=== PATIENT | male | born 1965 | race African-American/Black ===

== ENCOUNTER → 2016-10-17 | Outpatient (CLI) | payer OTHER | LOC: LAB 08:36 | DX: Z00.00 Encounter for general adult medical examination without abnormal findings (principal); Z13.220 Encounter for screening for lipoid disorders; R53.81 Other malaise; E29.1 Testicular hypofunction ==

== ENCOUNTER → 2017-10-20 | Outpatient (CLI) | payer SELFPAY ==
[2017-10-20 10:15] LABS: ALBUMIN 4.4 g/dL (3.5-5.0); CALCIUM 9.1 mg/dL (8.4-10.2); POTASSIUM 4.4 mmol/L (3.6-5.0); TOTAL BILIRUBIN 0.5 mg/dL (0.2-1.3); TOTAL PROTEIN 7.8 g/dL (6.3-8.2)
[2017-10-20 23:28] LABS: TESTOSTERONE 374 ng/dL (221-716)
== END ==
LOC: LAB 09:24
PROVIDERS: Nurse Practitioner Family
DX: G47.419 Narcolepsy without cataplexy (principal); E29.1 Testicular hypofunction